=== PATIENT | female | born 1955 | race American Indian/Alaskan Native ===

== ENCOUNTER 2020-06-25 06:17 | Day surgery (SDC) | payer OTHER ==
[~2020-06-25] VITALS: Ht 157.5 cm; Wt 84.6 kg
[~2020-06-25 06:17] MED LIST: CITA20 PO; GABA800 PO; MELO7.5; OXYACE5T PO; TRAZ100 PO
[2020-06-25] MEDS ORDERED: PRAV20 PO (06:54)
--- NOTE | 2020-06-25 08:46 | NUR ---
06/25/20 0846 REJI DODD PT TO PACU - OPENING EYES AND MOVING ABOUT WITH PURPOSE. PT SLEEPY AND DRIFTS OFF - O2 SATS DROPPING OCCASIONALLY TO 92% PT ON 10L VIA FACETENT UPON ADMISSION TO PACU. TITRATE DOWN TO 5L VIA FACETENT AND 02 SATS 97% PT DOSING, SNORING OCCASIONALLY. DENIES PAIN AND IS RESTING PEACEFULLY
--- NOTE | 2020-06-25 09:42 | NUR ---
06/25/20 0942 REJI DODD PATIENT SITTING UP IN RECLINER - TOLERATING PO INTAKE. MEDICATED FOR SEMI TOLERABLE PAIN WITH ONE TABLET OF OXYCODONE 5MG. IV PATENT. VITALS STABLE - PT ENCOURAGED TO DEEP BREATHE AND COUGH O2 SATS OCCASIONALLY DROP TO 90 - 92%
== END 2020-06-25 09:41 | disposition home or self-care (01) ==
LOC: ORSCSDS 06:17
PROVIDERS: Orthopaedic Surgery
PROC: 0SBD4ZZ Excision of Left Knee Joint, Percutaneous Endoscopic Approach (ICD-10-PCS; principal; 2020-06-25 07:30)
DX: S83.242A Other tear of medial meniscus, current injury, left knee, initial encounter (principal); E78.5 Hyperlipidemia, unspecified; E66.9 Obesity, unspecified; Z68.34 Body mass index [BMI] 34.0-34.9, adult; Z79.899 Other long term (current) drug therapy; Z79.82 Long term (current) use of aspirin
CPT/HCPCS: J0171; J0690; J1100; J1885; J2250; J2370; J2405; J2704; J3010; J7120

== ENCOUNTER 2022-09-08 09:52 | Day surgery (SDC) | payer OTHER ==
[~2022-09-08] VITALS: Ht 157.5 cm; Wt 77.1 kg
[~2022-09-08 09:52] MED LIST changes: +PRAV20 PO
== END 2022-09-08 12:01 | disposition home or self-care (01) ==
LOC: ORSCSDS 09:52
PROVIDERS: Internal Medicine Gastroenterology
PROC: 0DBH8ZX Excision of Cecum, Via Natural or Artificial Opening Endoscopic, Diagnostic (ICD-10-PCS; principal; 2022-09-08 11:15)
DX: Z12.11 Encounter for screening for malignant neoplasm of colon (principal); D12.0 Benign neoplasm of cecum; K57.30 Diverticulosis of large intestine without perforation or abscess without bleeding; Z79.82 Long term (current) use of aspirin; Z79.899 Other long term (current) drug therapy
CPT/HCPCS: 88305; J2704; J7120